=== PATIENT | male | born 1975 | race Caucasian/White ===

== ENCOUNTER 2018-03-30 12:28 | Emergency (ER) | payer OTHER ==
[~2018-03-30] VITALS: Ht 167.6 cm; Wt 72.6 kg
[2018-03-30 12:35] VITALS: BP 137/75
--- NOTE | 2018-03-30 13:20 | PHYS DOC ---
Past Medical History Past Medical History: No Pertinent History Past Surgical History: No Surgical History Alcohol Use: None Drug Use: Marijuana Adult General Chief Complaint Chief Complaint: ABSCESS [facility] HPI Patient is a 42 year old male who presents with 2 abscesses on the right and left of his scrotum. One is been there for 2 weeks and the other one has been there for 2-3 days. The one on the right side that has been there for 2-3 days and is quarter sized opening today and was draining purulent fluid. Patient rates pain 9 out of 10 and states he has not taken any medications today. Patient states he has a history of abscesses. Patient denies fevers. Patient states he has no primary care if no known drug allergies. Patient states he takes no medications daily and has no past medical history or surgical history. Review of Systems Review of Systems Constitutional: Denies fever or chills [] Eyes: Denies change in visual acuity, redness, or eye pain [] HENT: Denies nasal congestion or sore throat [] Respiratory: Denies cough or shortness of breath [] Cardiovascular: No additional information not addressed in HPI [] GI: Denies abdominal pain, nausea, vomiting, bloody stools or diarrhea [] : Denies dysuria or hematuria [] Musculoskeletal: Denies back pain or joint pain [] Integument: 1 nickel sized abscess on right of scrotum and left scrotal abscess quarter sized. Denies rash or skin lesions [] Neurologic: Denies headache, focal weakness or sensory changes [] Endocrine: Denies polyuria or polydipsia [] All other systems were reviewed and found to be within normal limits, except as documented in this note. Current Medications Current Medications Current Medications Medications (Trade) Dose Ordered Sig/[place] Start Time Stop Time Status Last Admin Dose Admin Acetaminophen/ Hydrocodone Bitart (Lortab 5/325) 1 tab 1X ONCE 03/30/18 13:30 03/30/18 13:31 DC 03/30/18 13:26 1 TAB Ibuprofen (Motrin) 800 mg 1X ONCE 03/30/18 13:30 03/30/18 13:31 DC 03/30/18 13:26 800 MG Lidocaine/Sodium Bicarbonate (Buffered Lidocaine 1%) 6 ml 1X ONCE 03/30/18 13:30 03/30/18 13:31 DC 03/30/18 13:25 6 ML Allergies Allergies Allergies Coded Allergies Type Severity Reaction Last Updated Verified No Known Drug Allergies 03/30/18 No Physical Exam Physical Exam Constitutional: Well developed, well nourished, no acute distress, non-toxic appearance. [] HENT: Normocephalic, atraumatic, bilateral external ears normal, oropharynx moist, no oral exudates, nose normal. [] Eyes: PERRLA, EOMI, conjunctiva normal, no discharge. [] Neck: Normal range of motion, no tenderness, supple, no stridor. [] Cardiovascular:Heart rate regular rhythm, no murmur [] Lungs & Thorax: Bilateral breath sounds clear to auscultation [] Abdomen: Bowel sounds normal, soft, no tenderness, no masses, no pulsatile masses. [] Skin: Warm, dry, Left sided scrotal erythema, no rash. Right sided scrotal abscess that opened and draining, nickel side. Left sided scrotal abscess nondraining and is about dollar coined sized. Left sided scrotal redness without swelling. [] Back: No tenderness, no CVA tenderness. [] Extremities: No tenderness, no cyanosis, no clubbing, ROM intact, no edema. [] Neurologic: Alert and oriented X 3, normal motor function, normal sensory function, no focal deficits noted. [] Psychologic: Affect normal, judgement normal, mood normal. [] Current Patient Data Vital Signs Vital Signs Date Time Temp Pulse Resp B/P (MAP) Pulse Ox O2 Delivery O2 Flow Rate FiO2 03/30/18 13:26 16 99 Room Air 03/30/18 12:35 98.5 97 137/75 (95) 98.5 EKG EKG [] Radiology/Procedures Radiology/Procedures [] Course & Med Decision Making Course & Med Decision Making Patient is a 42 year old male who presents with 2 abscesses on the right and left of his scrotum. One is been there for 2 weeks and the other one has been there for 2-3 days. The one on the right side that has been there for 2-3 days and is Nickel sized opening today and was draining purulent fluid. Patient rates pain 9 out of 10 and states he has not taken any medications today. Patient states he has a history of abscesses. Patient denies fevers. Patient states he has no primary care if no known drug allergies. Patient states he takes no medications daily and has no past medical history or surgical history. Alert and oriented. Skin warm and dry. Afebrile. Upon examination patient has an abscess to the right side and left side of his daughter. The one on the right side is nickel signs open and draining. The one on the left side is about dollar coin sized and soft and red and the redness extends onto the left side of his scrotum. Patient is given one Eugene and one ibuprofen in the ED. The area on the left side will be numbed with lidocaine and incision and drainage will be done. Large amount of foul smelling purulent drainage was drained. The right sided abscess is open at this time so it was not opened further. Patient will be given a prescription for Bactrim and Eugene. It is stressed to the pat patient the importance of him returning to the ED within 48 hours for a wound check. Abscess Incision and Drainage with irrigation by me: Location: Left side of scrotum abscess Anesthesia: Local 1% Lidocaine Technique: Irrigated. Disrupted loculations w/ instrumentation Packing: None Complications: Neurovascularly intact post procedure 48 hour wound check. Scar minimization instructions given. ED Ultrasound: Abscess localized by me using concurrent ultrasound guidance and assessment of the anatomy. Real time image archived in the medical record confirms anatomy. Dragon Disclaimer Dragon Disclaimer This electronic medical record was generated, in whole or in part, using a voice recognition dictation system. Departure Departure Impression: Primary Impression: Abscess Disposition: 01 HOME, SELF-CARE Condition: STABLE Referrals: NO PCP (PCP) Patient Instructions: Abscess, Perineal Additional Instructions: Follow up in the ED within 48 hours for a wound check. Try warm sitz bathes twice daily or as often as you would like. Please establish a primary care physician. Take medications as prescribed. Scripts Hydrocodone/Apap 5-325 (NORCO 5-325 TABLET) 1 Each Tablet 1 TAB PO PRN Q6HRS PRN for PAIN, #12 TAB 0 Refills Prov: JARROD LEÓN [employer] 03/30/18 Sulfamethoxazole/Trimethoprim (SULFAMETHOXAZOLE-TMP DS TABLET) 1 Each Tablet 1 TAB PO BID, #14 TAB Prov: JARROD LEÓN [employer] 03/30/18 JARROD LEÓN APRN Mar 30, 2018 13:20
[2018-03-30] MEDS: LIDOCAINE WITH 8.4% SOD BICARB 3 ML DISP.SYRIN. INJ ONE (13:25)
[2018-03-30] MEDS: IBUPROFEN 400 MG TABLET. PO ONE (13:26)
[2018-03-30] MEDS: HYDROcodone/APAP 5/325MG 1 TAB TABLET PO ONE (13:26)
[2018-03-30] MEDS ORDERED: HYDR-971 PO (13:28)
[2018-03-30] MEDS ORDERED: SULF-143 PO (13:28)
== END 2018-03-30 14:59 | disposition home or self-care (01) ==
LOC: ER 12:28
DX: N49.2 Inflammatory disorders of scrotum (principal)
CPT/HCPCS: 10060; 99283

== ENCOUNTER 2018-04-01 12:21 | Emergency (ER) | payer OTHER ==
[~2018-04-01] VITALS: Ht 167.6 cm; Wt 72.6 kg
[~2018-04-01 12:21] MED LIST: HYDR-3164 PO; SULF-143 PO
[2018-04-01 12:47] VITALS: BP 146/63
--- NOTE | 2018-04-01 13:30 | PHYS DOC ---
Past Medical History Past Medical History: No Pertinent History Past Surgical History: No Surgical History Additional Information: 1 PACK/DAY Alcohol Use: None Drug Use: Marijuana Adult General Chief Complaint Chief Complaint: WOUND CHECK HPI HPI 42 y/o returns to ER for wound recheck- he was evaluated in the ER on 03/30/18 for 2 abscesses in groin. Pt had I&D and was placed on 7 day course of Bactrim DS. Pt reports his sxs have improved. Pt denies fever, urinary sxs, rash, or testicular/scrotal pain or swelling. Pt was initially placed in Rm D in [facility]- he was moved to Rm 7 for exam with this provider and RN. Pt had steady/unassisted gait. Review of Systems Review of Systems Constitutional: Denies fever or chills [] Respiratory: Denies shortness of breath [] GI: Denies abdominal pain, nausea, vomiting, or diarrhea [] : Denies dysuria or hematuria. Denies testicular/scrotal/penis pain or swelling. Denies penile drainage. Reports sores in bilat. groin- drainage from lt side wound and he reports both sites are better in appearance. Musculoskeletal: Denies back pain or joint pain [] Integument: Reports bilat. sores in groin Neurologic: Denies headache, focal weakness or sensory changes [] All other systems were reviewed and found to be within normal limits, except as documented in this note. Allergies Allergies Allergies Coded Allergies Type Severity Reaction Last Updated Verified No Known Drug Allergies 03/30/18 No Physical Exam Physical Exam Constitutional: Well developed, well nourished, no acute distress, non-toxic appearance. [] HENT: Normocephalic, atraumatic, oropharynx moist Eyes: Pupils equal, conjunctiva normal, no discharge. [] Neck: Normal range of motion, no tenderness, supple, no stridor. [] Cardiovascular:Heart rate regular Lungs & Thorax: Resp. equal/nonlabored Abdomen: Bowel sounds normal, soft, no tenderness Skin: Warm, dry, no rash. [] Back: No tenderness, full ROM. No CVA tenderness Extremities: No tenderness, no cyanosis, no clubbing, ROM intact, no edema. [] Neurologic: Alert and oriented X 3, normal motor function, normal sensory function, no focal deficits noted. [] Psychologic: Affect normal, judgement normal, mood normal. [] exam with RN at bedside during initial exam by this provider Small abscess in bilat. groin folds. Lt side wound is draining clear fluid- mild erythema surrounding site with no induration/fluctuation. Rt side wound is not draining- small fluctuation in center with mild erythema surrounding wound. No induration surrounding site. 2+ bilat. femoral. No scrotal/testicular tenderness on palp. No other lesions/rash on exam. No penile drainage/ tenderness. Current Patient Data Vital Signs Vital Signs Date Time Temp Pulse Resp B/P (MAP) Pulse Ox O2 Delivery O2 Flow Rate FiO2 04/01/18 12:47 99.1 77 18 146/63 (90) 98 Room Air 99.1 EKG EKG [] Radiology/Procedures Radiology/Procedures [] Course & Med Decision Making Course & Med Decision Making Patient was in no visible distress and reports his right groin abscess appearance is much better than when seen 2 days ago in the ER. Patient denies any fever, urinary symptoms, or swelling in extremities. I&D offered to further drain rt groin abscess with small area of fluctuation in center of wound and pt refused. He reports with improved sxs he will continue to take antibiotics. With patient refusing I&D education provided on continued monitoring of wound for worsening symptoms and signs and symptoms he should return to ER for. Discussed warm compress applications to affected area. Patient advised to continue taking antibiotics and complete all prescription even if symptoms improve. Discharge instructions were discussed and patient advised on use of [id number] ibuprofen and/or Tylenol as needed for pain as directed on container. Dragon Disclaimer Dragon Disclaimer This electronic medical record was generated, in whole or in part, using a voice recognition dictation system. Departure Departure Impression: Primary Impression: Encounter for evaluation of wound Disposition: HOME, SELF-CARE Condition: STABLE Referrals: NO PCP (PCP) Patient Instructions: Wound Check Additional Instructions: Continue monitoring groin abscess for worsening symptoms. Tylenol and/or ibuprofen as directed on container as needed for pain. Warm compress to affected areas 3-4 Times a day for 20-30 Minutes at a time every 3-4 Hours. NAYELI HICKS APRN Apr 01, 2018 13:30
== END 2018-04-01 13:40 | disposition home or self-care (01) ==
LOC: ER 12:21
DX: L02.214 Cutaneous abscess of groin (principal); F17.200 Nicotine dependence, unspecified, uncomplicated
CPT/HCPCS: 99281